=== PATIENT | female | born 1955 | race American Indian/Alaskan Native ===

== ENCOUNTER 2020-08-14 18:39 | Inpatient (IN) | payer MEDICAID, OTHER ==
[2020-08-14 19:41] LABS: Basophils % (Auto) 0.4 % (0.0-1.8); Eosinophils # (Auto) 0.1 K/mm3 (0.0-0.4); Eosinophils % (Auto) 0.9 % (0.0-4.3); Hematocrit 31.4 % (30.3-42.9); Hemoglobin 10.1 gm/dl (10.1-14.3); Lymphocytes # (Auto) 2.5 K/mm3 (1.2-5.4); Lymphocytes % (Auto) 22.8 % (13.4-35.0); Mean Corpuscular HGB Conc 32 % (30-34); Mean Corpuscular Volume 85 fl (79-97); Monocytes # (Auto) 0.9 K/mm3 (0.0-0.8); Monocytes % (Auto) 8.4 % (0.0-7.3); Platelet Count 350 K/mm3 (140-440); Red Cell Distribution Width 17.1 % (13.2-15.2)
--- NOTE | 2020-08-14 19:56 | XRay Report ---
CHEST 1 VIEW INDICATION / CLINICAL INFORMATION: Dyspnea. COMPARISON: 05/12/2015 FINDINGS: Radiograph is underpenetrated SUPPORT DEVICES: None. HEART / MEDIASTINUM: There is prominence of the cardiac silhouette LUNGS / PLEURA: There is venous congestion. There is perihilar interstitial change characteristic of edema.. No pneumothorax. ADDITIONAL FINDINGS: No significant additional findings. IMPRESSION: There is mild venous congestion and perihilar edema. There is prominence the cardiac silhouette. This radiograph is underpenetrated. PA and lateral chest radiograph is recommended for better evaluat ion of the lungs when the patient is able. Signer Name: Ab Milner MD Signed: 08/14/2020 7:52 PM Workstation Name: [id number]
[2020-08-14 20:02] LABS: Alanine Aminotransferase 23 units/L (7-56); Albumin 3.9 g/dL (3.9-5); BUN/Creatinine Ratio 19; Blood Urea Nitrogen 15 mg/dL (7-17); Calcium 9.6 mg/dL (8.4-10.2); Hemolysis Index 3
--- NOTE | 2020-08-14 20:42 | Emergency Department Report ---
HPI - General Chief Complaint: Dyspnea/Respdistress Time Seen by Provider: 08/14/20 19:58 - HPI HPI: This is a 64-year-old -N[place]alese female presents to the emergency department from home with a complaint of a 3-day history of progressively worsening shortness of breath. The patient also has been having swelling of the lower extremities and around the abdomen that has been going on for the past 3 weeks. She denies any fever but does have chills. She denies any nausea, vomiting, diaphoresis, chest pain, abdominal pain, back pain. Patient tried her granddaughters inhaler a few times earlier today without much relief. The shortness of breath worsens when laying flat or with exertion. She travel to [place] by plane in July. She says that she has had some family members that were positive for Covid 19 but this was months ago. She has a past medical history that includes hypertension, hyperlipidemia, diabetes. She follows with [facility] for primary care. ED Past Medical Hx - Past Medical History Previous Medical History?: Yes Hx Hypertension: Yes Hx Congestive Heart Failure: No Hx Diabetes: Yes Hx Sickle Cell Disease: No Hx Arthritis: Yes Hx Asthma: Yes Hx COPD: No Hx HIV: No Additional medical history: PANCREATITIS - Surgical History Past Surgical History?: Yes Hx Appendectomy: Yes Additional Surgical History: HYSTERECTOMY - Social History Smoking Status: Never Smoker - Medications Home Medications: Home Medications Medication Instructions Recorded Confirmed Last Taken Type Aspirin [Aspirin BABY CHEW TAB] 81 mg PO DAILY 07/20/16 07/20/16 Unknown History Diclofenac Sodium [Voltaren] 100 gm TP 4XD 07/20/16 07/20/16 Unknown History Gabapentin 100 mg PO Q8HR 07/20/16 07/20/16 Unknown History Insulin Detemir [Levemir VIAL] 0 unit SQ QHS 07/20/16 07/20/16 Unknown History Insulin Lispro [HumaLOG VIAL] 0 units SQ AC 07/20/16 07/20/16 Unknown History Losartan [Cozaar] 25 mg PO QDAY 07/20/16 07/20/16 Unknown History Rosuvastatin (Nf) [Crestor] 20 mg PO DAILY 07/20/16 07/20/16 Unknown History amLODIPine 10 mg PO DAILY 07/20/16 07/20/16 Unknown History ED Review of Systems ROS: Stated complaint: SOB Other details as noted in HPI Comment: All other systems reviewed and negative Constitutional: chills. denies: fever Eyes: denies: eye pain, vision change ENT: denies: ear pain, throat pain Respiratory: cough, shortness of breath, wheezing Cardiovascular: edema. denies: chest pain Gastrointestinal: denies: abdominal pain, vomiting Genitourinary: denies: dysuria, discharge Musculoskeletal: denies: back pain, arthralgia Skin: denies: rash, lesions Neurological: denies: headache, weakness Physical Exam - Physical Exam Vital Signs: Vital Signs 08/14/20 18:41 Temperature 98.2 F Pulse Rate 72 Respiratory 32 H Rate Blood Pressure 116/69 [Right] O2 Sat by Pulse 89 Oximetry Physical Exam: GENERAL: The patient is well-developed well-nourished. HENT: Normocephalic. Atraumatic. Patient has moist mucous membranes. EYES: Extraocular motions are intact. NECK: Supple. Trachea is midline. CHEST/LUNGS: Coarse breath sounds throughout the chest. There is some tachypnea but no accessory muscle use. HEART/CARDIOVASCULAR: Regular. There is no tachycardia. There is no murmur. ABDOMEN: Abdomen is soft, nontender. Patient has normal bowel sounds. SKIN: Skin is warm and dry. 2+ pitting edema to the bilateral lower extremities. Nonpitting swelling to the lower abdomen. NEURO: The patient is awake, alert, and oriented. The patient is cooperative. The patient has no focal neurologic deficits. Normal speech. MUSCULOSKELETAL: There is no tenderness or deformity. ED Course Vital Signs 08/14/20 18:41 Temperature 98.2 F Pulse Rate 72 Respiratory 32 H Rate Blood Pressure 116/69 [Right] O2 Sat by Pulse 89 Oximetry - Reevaluation(s) Reevaluation #1: 08/14/20 23:58 Lab Results 08/14/20 08/14/20 08/14/20 Range/Units 19:15 19:15 20:33 WBC 11.0 (4.5-11.0) K/mm3 RBC 3.70 (3.65-5.03) M/mm3 Hgb 10.1 (10.1-14.3) gm/dl Hct 31.4 (30.3-42.9) % MCV 85 (79-97) fl MCH 27 L (28-32) pg MCHC 32 (30-34) % RDW 17.1 H (13.2-15.2) % Plt Count 350 (140-440) K/mm3 Lymph % (Auto) 22.8 (13.4-35.0) % [place] % (Auto) 8.4 H (0.0-7.3) % Eos % (Auto) 0.9 (0.0-4.3) % Baso % (Auto) 0.4 (0.0-1.8) % Lymph # 2.5 (1.2-5.4) K/mm3 [place] # 0.9 H (0.0-0.8) K/mm3 Eos # 0.1 (0.0-0.4) K/mm3 Baso # 0.0 (0.0-0.1) K/mm3 Seg Neutrophils % 67.5 (40.0-70.0) % Seg Neutrophils # 7.4 (1.8-7.7) K/mm3 D-Dimer 666.45 H (0-234) ng/mlDDU Sodium 144 (137-145) mmol/L Potassium 3.4 L (3.6-5.0) mmol/L Chloride 104.9 (98-107) mmol/L Carbon Dioxide 24 (22-30) mmol/L Anion Gap 19 mmol/L BUN 15 (7-17) mg/dL Creatinine 0.8 (0.6-1.2) mg/dL Estimated GFR > 60 ml/min BUN/Creatinine Ratio 19 % Glucose 175 H (65-100) mg/dL Calcium 9.6 (8.4-10.2) mg/dL Ferritin (10.0-200.0) ng/mL Total Bilirubin 0.60 (0.1-1.2) mg/dL AST 16 (5-40) units/L ALT 23 (7-56) units/L Alkaline Phosphatase 235 H (35-129) units/L Lactate Dehydrogenase (91-180) units/L Troponin T < 0.010 (0.00-0.029) ng/mL C-Reactive Protein (0.00-1.30) mg/dL NT-Pro-B Natriuret Pep 1156 H (0-900) pg/mL Total Protein 7.1 (6.3-8.2) g/dL Albumin 3.9 (3.9-5) g/dL Albumin/Globulin Ratio 1.2 % 08/14/20 08/14/20 Range/Units 20:33 20:33 WBC (4.5-11.0) K/mm3 RBC (3.65-5.03) M/mm3 Hgb (10.1-14.3) gm/dl Hct (30.3-42.9) % MCV (79-97) fl MCH (28-32) pg MCHC (30-34) % RDW (13.2-15.2) % Plt Count (140-440) K/mm3 Lymph % (Auto) (13.4-35.0) % [place] % (Auto) (0.0-7.3) % Eos % (Auto) (0.0-4.3) % Baso % (Auto) (0.0-1.8) % Lymph # (1.2-5.4) K/mm3 [place] # (0.0-0.8) K/mm3 Eos # (0.0-0.4) K/mm3 Baso # (0.0-0.1) K/mm3 Seg Neutrophils % (40.0-70.0) % Seg Neutrophils # (1.8-7.7) K/mm3 D-Dimer (0-234) ng/mlDDU Sodium (137-145) mmol/L Potassium (3.6-5.0) mmol/L Chloride (98-107) mmol/L Carbon Dioxide (22-30) mmol/L Anion Gap mmol/L BUN (7-17) mg/dL Creatinine (0.6-1.2) mg/dL Estimated GFR ml/min BUN/Creatinine Ratio % Glucose (65-100) mg/dL Calcium (8.4-10.2) mg/dL Ferritin 187.4 (10.0-200.0) ng/mL Total Bilirubin (0.1-1.2) mg/dL AST (5-40) units/L ALT (7-56) units/L Alkaline Phosphatase (35-129) units/L Lactate Dehydrogenase 270 H (91-180) units/L Troponin T (0.00-0.029) ng/mL C-Reactive Protein 1.00 (0.00-1.30) mg/dL NT-Pro-B Natriuret Pep (0-900) pg/mL Total Protein (6.3-8.2) g/dL Albumin (3.9-5) g/dL Albumin/Globulin Ratio % Reevaluation #2: 08/14/20 23:59 Vital Signs 08/14/20 08/14/20 18:41 19:35 Temperature 98.2 F 98.0 F Pulse Rate 72 62 Respiratory 32 H 13 Rate Blood Pressure 116/69 104/58 [Right] O2 Sat by Pulse 89 100 Oximetry - Pulse Oximetry Interpretation Digit-Finger Initial Pulse Oximetry Readin O2 Sat by Pulse Oximetry: 89 Actions Taken: other (Placed on 2 L oxygen by nasal cannula) Additional Comments: Pulse ox went up to 100% on 2 L oxygen via nasal cannula ED Medical Decision Making - Lab Data Result diagrams: 08/14/20 19:15 08/14/20 19:15 - EKG Data -: EKG Interpreted by Me EKG shows normal: sinus rhythm (PACs), axis, intervals, QRS complexes, ST-T waves Rate: bradycardia (59 bpm) - EKG Data When compared to previous EKG there are: no significant change Interpretation: normal EKG, unchanged when compared t (07/20/16) - Radiology Data Radiology results: report reviewed, image reviewed interpreted by me: Chest x-ray shows some mild cardiomegaly, pulmonary vascular congestion and some mild interstitial edema. CT angio chest INDICATION / CLINICAL INFORMATION: P.E. PROTOCOL!!! SOB, elevated D-dimer. TECHNIQUE: Axial CT images were obtained after injection of Omnipaque 300, 100 cc IV contrast using CTA protocol. 3 plane MIP / 3D reconstructions were produced. All CT scans at this location are performed using CT dose reduction for ALARA by means of automated exposure control. COMPARISON: Chest x- ray earlier the same day. FINDINGS: Small right effusion. Bilateral heterogeneous groundglass opacity with mosaic attenuation. No dense infiltrate. Evaluation of the mediastinum demonstrates right prominent nodes at the right paratracheal, pretracheal and subcarinal regions. A construction sales representative node at the right paratracheal region measures 1.7 x 2 cm. Prominent eliot tissue is also seen at the right hilum. Imaging the upper abdomen is unremarkable. No aneurysm, dissection or pulmonary embolus. IMPRESSION: 1. Heterogeneous groundglass opacity with mosaic attenuation is likely a combination of reactive airway disease and edema. 2. Small right effusion. 3. Mild adenopathy. No pathologic lung lesion is seen. - Medical Decision Making This patient presents with a 3-day history of progressively worsening shortness of breath and a 3-week history of some swelling to the legs and lower abdomen. The patient's initial room air pulse ox was 89%, so she was placed on 2 L of oxygen via nasal cannula and the pulse ox went up to 100%. EKG did not have any morphology consistent with ST elevation NE. Chest x-ray shows some pulmonary vascular congestion and mild interstitial edema. Patient's labs showed an elevated d-dimer level of about 600, elevated BNP of 1100, slightly elevated LDH. Normal-appearing CRP, ferritin and procalcitonin level. CT angiography of the chest was completed that shows a heterogenous groundglass opacity that is likely accommodation of reactive airway disease and edema, as well as a small right pleural effusion. Blood cultures were sent and the patient was started on antibiotics. She was previously given some IV Lasix to start diuresis. The patient will be admitted to the hospital for further evaluation and treatment and was excepted for admission by the hospitalist, Dr. Barillas. As soon as I was presented this patient and saw that she had a room air pulse ox of 89% with a complaint of shortness of breath, the patient was moved to a private room for patient isolation and droplet precautions. The patient was placed in patient isolation and droplet precautions immediately upon arrival to the main emergency department. I wore full PPE gear including a surgical hat, goggles, N95 mask, surgical mask, gown, and double gloves for every encounter. Critical Care Time: Yes Critical care time in (mins) excluding proc time.: 35 Critical care attestation.: If time is entered above; I have spent that time in minutes in the direct care of this critically ill patient, excluding procedure time. Critical care time was spent on this patient in doing her initial evaluation, multiple re- evaluations, ordering and interpretation of labs and imaging, supplemental oxygen for the hypoxia, IV Lasix for diuresis, IV antibiotics, multiple discussions with the patient. Critical Care Time: 35 minutes ED Disposition Clinical Impression: Suspected 2019 novel coronavirus infection, Hypoxia CHF (congestive heart failure) Qualifiers: Heart failure type: unspecified Heart failure chronicity: acute Qualified Code(s): I50.9 - Heart failure, unspecified Disposition: DC-09 OP ADMIT IP TO THIS HOSP Is pt being admited?: Yes Condition: Serious Time of Disposition: 23:41
[2020-08-14] MEDS ORDERED: FUROSEMIDE 20 MG/2 ML INJ IV ONE (20:43)
[2020-08-14] MEDS ORDERED: IPRATROPIUM/ALBUTEROL SULFATE 3 ML AMPUL.NEB IH ONE (20:43)
[2020-08-14] MEDS ORDERED: POTASSIUM CHLORIDE ER 10 MEQ TAB PO ONE (20:43)
--- NOTE | 2020-08-14 23:28 | Cat Scan Report ---
CT angio chest INDICATION / CLINICAL INFORMATION: P.E. PROTOCOL!!! SOB, elevated D-dimer. TECHNIQUE: Axial CT images were obtained after injection of Omnipaque 300, 100 cc IV contrast using CTA protocol . 3 plane MIP / 3D reconstructions were produced. All CT scans at this location are performed using C T dose reduction for ALARA by means of automated exposure control. COMPARISON: Chest x-ray earlier the same day. FINDINGS: Small right effusion. Bilateral heterogeneous groundglass opacity with mosaic attenuation. No dense i nfiltrate. Evaluation of the mediastinum demonstrates right prominent nodes at the right paratracheal, pretrache al and subcarinal regions. A dermatology sales representative node at the right paratracheal region measures 1.7 x 2 cm . Prominent eliot tissue is also seen at the right hilum. Imaging the upper abdomen is unremarkable. No aneurysm, dissection or pulmonary embolus. IMPRESSION: 1. Heterogeneous groundglass opacity with mosaic attenuation is likely a combination of reactive airw ay disease and edema. 2. Small right effusion. 3. Mild adenopathy. No pathologic lung lesion is seen. Signer Name: Isak Hendrix MD Signed: 08/14/2020 11:24 PM Workstation Name: [id number]
[2020-08-14] MEDS ORDERED: cefTRIAXone/NS 1 GM/50 ML 1 GM/50 ML BAG IV ONE (23:38)
[2020-08-14] MEDS ORDERED: AZITHROMYCIN 500 MG in SODIUM CHLORIDE 0.9% 250ML 250 ML IV ONE (23:38)
[2020-08-14] MEDS ORDERED: ACETAMINOPHEN 325 MG TAB PO PRN (23:45)
[2020-08-14] MEDS ORDERED: DEXTROSE 50% IN WATER (25GM) 50 ML SYRINGE IV PRN (23:45)
[2020-08-14] MEDS ORDERED: ONDANSETRON 4 MG/2 ML INJ IV PRN (23:45)
[2020-08-14] MEDS ORDERED: MAGNESIUM HYDROXIDE (MOM) ORAL LIQD UDC PO PRN (23:50)
--- NOTE | 2020-08-15 00:01 | History and Physical Report ---
History of Present Illness Date of examination: 08/14/20 Date of admission: 08/14/2020 Chief complaint: Shortness of Breath History of present illness: 64-year-old -[place] female with known history of hypertension, diabetes mellitus, hyperlipidemia and asthma presenting to the emergency room today complaining of her shortness of breath, lower extremity swelling and some chills which has been ongoing for the past 3 days. Patient indicates that she has had some swelling of her lower extremities and also lower abdomen over the past 3 weeks but has gotten worse over the past 3 days. She denies any chest pain, no fever, no nausea vomiting, no abdominal p ain, no headache or dizziness. Patient tried using some inhaler at home without any significant improvement. Shortness of breath is said to get worse on lying down and on exertion. Patient admits that she has had contact with family members who were diagnosed with COVID-19 about 2 to 3 months ago and she also had an area travel to [place] sometime in July 2020. Evaluation in the emergency room today reveals elevated BNP, elevated d-dimer. CT angiogram of the chest reveals Heterogeneous groundglass opacity with mosaic attenuation - likely a combination of reactive airway disease and edema. Small right effusion Patient has been placed on diuretics and also empiric IV antibiotics for possible underlying pneumonia. She is also placed on isolation precautions. Past History Past Medical History: arthritis, diabetes, hypertension, hyperlipidemia Past Surgical History: appendectomy, hysterectomy Social history: no significant social history Family history: no significant family history Medications and Allergies Allergies Allergy/AdvReac Type Severity Reaction Status Date / Time No Known Allergies Allergy Verified 05/25/15 17:50 Home Medications Medication Instructions Recorded Confirmed Last Taken Type Aspirin [Aspirin BABY CHEW TAB] 81 mg PO DAILY 07/20/16 08/15/20 Unknown History Diclofenac Sodium [Voltaren] 100 gm TP 4XD 07/20/16 08/15/20 Unknown History Gabapentin 300 mg PO Q8HR 07/20/16 08/15/20 Unknown History Insulin Detemir [Levemir VIAL] 0 unit SQ QHS 07/20/16 08/15/20 Unknown History Insulin Lispro [HumaLOG VIAL] 0 units SQ AC 07/20/16 08/15/20 Unknown History Losartan [Cozaar] 100 mg PO QDAY 07/20/16 08/15/20 Unknown History Rosuvastatin (Nf) [Crestor] 20 mg PO DAILY 07/20/16 08/15/20 Unknown History amLODIPine 10 mg PO DAILY 07/20/16 08/15/20 Unknown History Furosemide 80 mg PO DAILY 08/15/20 08/15/20 Unknown History Spironolactone [Aldactone] 50 mg PO QDAY 08/15/20 08/15/20 Unknown History Active Meds: Active Medications Dextrose (D50w (25gm) Syringe) 50 ml IV Q30MIN PRN; Protocol PRN Reason: Hypoglycemia Ceftriaxone Sodium (Rocephin/Ns 1 Gm/50 Ml) 1 gm in 50 mls @ 100 mls/hr IV ONCE ONE; Protocol Stop: 08/15/20 00:07 Azithromycin 500 mg/ Sodium (Chloride) 250 mls @ 250 mls/hr IV ONCE ONE; Protocol Stop: 08/15/20 00:37 Review of Systems Constitutional: chills, no fever Ears, nose, mouth and throat: no nasal congestion, no sore throat Cardiovascular: no chest pain, no palpitations Respiratory: shortness of breath, no cough Gastrointestinal: no abdominal pain, no nausea, no vomiting, no diarrhea Genitourinary Female: no pelvic pain, no flank pain, no dysuria, no hematuria Musculoskeletal: no neck pain, no low back pain Integumentary: no rash, no pruritis Neurological: no headaches, no confusion Exam - Constitutional Vitals: Temp Pulse Resp BP Pulse Ox 98.0 F 62 13 104/58 100 08/14/20 19:35 08/14/20 19:35 08/14/20 19:35 08/14/20 19:35 08/14/20 19:35 General appearance: Present: no acute distress, well-nourished - EENT Eyes: Present: PERRL, EOM intact ENT: hearing intact, clear oral mucosa, dentition normal - Neck Neck: Present: supple, normal ROM - Respiratory Respiratory effort: normal Respiratory: bilateral: rales - Cardiovascular Rhythm: regular Heart Sounds: Present: S1 & S2. Absent: gallop, systolic murmur, diastolic murmur, rub - Extremities Extremities: no ischemia, pulses intact, pulses symmetrical, Full ROM Extremity abnormal: edema (1+) Peripheral Pulses: within normal limits - Abdominal General gastrointestinal: Present: soft, non-tender, non-distended, normal bowel sounds. Absent: mass - Integumentary Integumentary: Present: clear, warm, dry. Absent: rash - Musculoskeletal Musculoskeletal: strength equal bilaterally - Psychiatric Psychiatric: appropriate mood/affect, intact judgment & insight, memory intact, cooperative - Neurologic Neurologic: CNII-XII intact, no focal deficits, moves all extremities HEART Score - HEART Score Troponin: Troponin T < 0.010 ng/mL (0.00-0.029) 08/14/20 19:15 Results - Labs CBC & Chem 7: 08/14/20 19:15 08/14/20 19:15 Labs: Abnormal lab results 08/14/20 08/14/20 08/14/20 Range/Units 19:15 19:15 20:33 MCH 27 L (28-32) pg RDW 17.1 H (13.2-15.2) % [place] % (Auto) 8.4 H (0.0-7.3) % [place] # 0.9 H (0.0-0.8) K/mm3 D-Dimer 666.45 H (0-234) ng/mlDDU Potassium 3.4 L (3.6-5.0) mmol/L Glucose 175 H (65-100) mg/dL Alkaline Phosphatase 235 H (35-129) units/L Lactate Dehydrogenase (91-180) units/L NT-Pro-B Natriuret Pep 1156 H (0-900) pg/mL 08/14/20 Range/Units 20:33 MCH (28-32) pg RDW (13.2-15.2) % [place] % (Auto) (0.0-7.3) % [place] # (0.0-0.8) K/mm3 D-Dimer (0-234) ng/mlDDU Potassium (3.6-5.0) mmol/L Glucose (65-100) mg/dL Alkaline Phosphatase (35-129) units/L Lactate Dehydrogenase 270 H (91-180) units/L NT-Pro-B Natriuret Pep (0-900) pg/mL - Imaging and Cardiology EKG: pending, report reviewed, image reviewed, other CT scan - chest: other Assessment and Plan - Patient Problems (1) CHF (congestive heart failure) Current Visit: Yes Status: Acute Plan to address problem: Patient placed on diuretics. Will monitor daily weights and also monitor inputs and output. Patient will be scheduled for echocardiogram. (2) Hypoxia Current Visit: Yes Status: Acute Plan to address problem: We will keep oxygen saturation greater or equal to 92%. (3) Suspected 2019 novel coronavirus infection Current Visit: Yes Status: Acute Plan to address problem: Patient placed on isolation precautions. We will schedule for COVID-19 testing. We will also request infectious disease evaluation. (4) Diabetes mellitus Current Visit: No Status: Acute Qualifiers: Diabetes mellitus type: type 2 Diabetes mellitus mcfp insulin use: with mcfp use Diabetes mellitus complication status: with hyperglycemia Qualified Code(s): E11.65 - Type 2 diabetes mellitus with hyperglycemia; Z79.4 - [facility]CI (current) use of insulin Plan to address problem: We will monitor Accu-Cheks and resume routine home medications once reconciled. (5) HTN (hypertension) Current Visit: No Status: Acute Qualifiers: Hypertension type: essential hypertension Qualified Code(s): I10 - Essential (primary) hypertension Plan to address problem: We will continue routine home medications and monitor vital signs closely. (6) DVT prophylaxis Current Visit: Yes Status: Acute Plan to address problem: Patient placed on subcutaneous Lovenox. (7) Full code status Current Visit: Yes Status: Acute
[2020-08-15] MEDS ORDERED: cefTRIAXone/NS 2 GM/100 ML 2 GM/100 ML BAG IV ONE (00:52)
[2020-08-15] MEDS: cefTRIAXone/NS 2 GM/100 ML 2 GM/100 ML BAG IV SCH ×2 (00:55→22:23)
[2020-08-15] MEDS ORDERED: diphenhydrAMINE 50 MG/ML VIAL IV ONE (01:40)
[2020-08-15] MEDS: GABAPENTIN 300 MG CAP PO SCH ×3 (06:00→22:24)
[2020-08-15] MEDS: FUROSEMIDE 40 MG/4 ML INJ IV SCH ×2 (06:00→18:12)
[2020-08-15 06:13] LABS: Basophils # (Auto) 0.1 K/mm3 (0.0-0.1); Basophils % (Auto) 0.6 % (0.0-1.8); Eosinophils # (Auto) 0.2 K/mm3 (0.0-0.4); Eosinophils % (Auto) 1.8 % (0.0-4.3); Hematocrit 30.5 % (30.3-42.9); Hemoglobin 9.7 gm/dl (10.1-14.3); Lymphocytes # (Auto) 2.6 K/mm3 (1.2-5.4); Lymphocytes % (Auto) 26.8 % (13.4-35.0); Mean Corpuscular HGB Conc 32 % (30-34); Mean Corpuscular Volume 85 fl (79-97); Monocytes # (Auto) 0.7 K/mm3 (0.0-0.8); Monocytes % (Auto) 7.4 % (0.0-7.3); Platelet Count 322 K/mm3 (140-440); Red Blood Count 3.61 M/mm3 (3.65-5.03)
[2020-08-15 06:23] LABS: BUN/Creatinine Ratio 16; Blood Urea Nitrogen 13 mg/dL (7-17); Calcium 8.7 mg/dL (8.4-10.2); Hemolysis Index 27
[2020-08-15 06:33] LABS: INR 1.1 (0.87-1.13)
[2020-08-15] MEDS: ASPIRIN 81 MG TAB CHEW PO SCH (09:39)
[2020-08-15] MEDS: amLODIPine 10 MG TAB PO SCH (09:39)
[2020-08-15] MEDS: LOSARTAN 50 MG TAB PO SCH (09:39)
[2020-08-15] MEDS: SPIRONOLACTONE 50 MG TAB PO SCH (09:39)
[2020-08-15] MEDS: INSULIN LISPRO 100 UNIT/ML VIAL 3 mL SUB-Q SCH ×4 (09:45→22:25)
[2020-08-15] MEDS ORDERED: NON-FORMULARY EACH (Rosuvastatin (Nf) 20 MG) PO SCH (10:00)
[2020-08-15] MEDS ORDERED: INSULIN GLARGINE 100 UNITS/ML SUB-Q SCH (12:00)
[2020-08-15] MEDS: INSULIN GLARGINE 100 UNITS/ML SUB-Q SCH (13:33)
--- NOTE | 2020-08-15 15:27 | Consultation ---
History of Present Illness - Reason for Consult Consult date: 08/15/20 r/o COVID Requesting physician: ALFREDO BELLO - History of Present Illness 64 years old female with history of hypertension, diabetes, hyperlipidemia, hospital, admitted on 08/15/2020 due to 2-day history of history of generalized malaise, chills, lower extremity edema, shortness of breath. Her lower extremity and abdominal wound has been becoming swollen for the last 3 weeks. Patient denies any fever. She was exposed to family members positive for COVID- 19 3 months ago. She traveled to the medical center in July 2020. On admission: T- max 98.2, O2 89%. Initial WBC 11. D-dimer 666. proBNP 856. Glucose 247. Procalcitonin less than 0.05. CTA chest shows heterogeneous groundglass opacity likely pulmonary edema versus reactive airways. COVID-19 PCR negative. Review of Systems: positive in bold print General: fever, chills, malaise Cutaneous: rash, pruritus Head: headaches or injury Eyes: changes in vision, eye pain, double vision Ears: ear pain, ear discharge, ringing or hearing loss Nose: nose bleeding, stuffiness Mouth & throat: bleeding gums, horseness, no dental problems, or swollen glands Neck: no pain, node enlargement/lumps, tyroid enlargement or tenderness Respiratory: SOB, cough, ELDER, orthopnea, wheezing, sputum, hemoptysis, pleuritic chest pain Cardiovascular: chest pain, leg edema, cyanosis, ELDER, orthopnea Musculoskeletal: edema, deformities, pain Gastrointestinal: nausea, vomiting, hematemesis, diarrhea, constipation, melena, bright red blood in stools, fecal incontinence, jaundice Genitourinary/Reproductive: frequent urination, dysuria, hematuria, incontinence Neurogical: seizures, headaches, weakness, paresthesias, loss of speech or vision; memory loss, vertigo, tremors, numbness Psychiatric: stable mood; excessive anxiety, sadness or moodiness Past History Past Medical History: arthritis, diabetes, hypertension, hyperlipidemia Past Surgical History: appendectomy, hysterectomy Social history: no significant social history Family history: no significant family history Medications and Allergies Allergies Allergy/AdvReac Type Severity Reaction Status Date / Time No Known Allergies Allergy Verified 05/25/15 17:50 Home Medications Medication Instructions Recorded Confirmed Last Taken Type Aspirin [Aspirin BABY CHEW TAB] 81 mg PO DAILY 07/20/16 08/15/20 Unknown History Diclofenac Sodium [Voltaren] 100 gm TP 4XD 07/20/16 08/15/20 Unknown History Gabapentin 300 mg PO Q8HR 07/20/16 08/15/20 Unknown History Insulin Detemir [Levemir VIAL] 35 unit SQ QAM 07/20/16 08/15/20 Unknown History Insulin Lispro [HumaLOG VIAL] 0 units SQ AC 07/20/16 08/15/20 Unknown History Losartan [Cozaar] 100 mg PO QDAY 07/20/16 08/15/20 Unknown History Rosuvastatin (Nf) [Crestor] 20 mg PO DAILY 07/20/16 08/15/20 Unknown History amLODIPine 10 mg PO DAILY 07/20/16 08/15/20 Unknown History Furosemide 80 mg PO DAILY 08/15/20 08/15/20 Unknown History Spironolactone [Aldactone] 50 mg PO QDAY 08/15/20 08/15/20 Unknown History Active Meds: Active Medications Acetaminophen (Tylenol) 650 mg PO Q4H PRN PRN Reason: Pain MILD(1-3)/Fever >100.5/[place] Amlodipine Besylate (Amlodipine) 10 mg PO DAILY [facility] [place] Last Admin: 08/15/20 09:39 Dose: 10 mg Documented by: Aspirin (Baby Aspirin) 81 mg PO DAILY [facility] Last Admin: 08/15/20 09:39 Dose: 81 mg Documented by: Atorvastatin Calcium (Lipitor) 40 mg PO DAILY [facility] [place] Last Admin: 08/15/20 09:39 Dose: 40 mg Documented by: Azithromycin (Zithromax) 500 mg PO Q24H [facility] Dextrose (D50w (25gm) Syringe) 50 ml IV Q30MIN PRN; Protocol PRN Reason: Hypoglycemia Enoxaparin Sodium (Enoxaparin) 40 mg SUB-Q QDAY@2200 [facility] [place]; Protocol Furosemide (Lasix) 40 mg IV BID@0600,1800 [facility] [place] Last Admin: 08/15/20 06:00 Dose: 40 mg Documented by: Gabapentin (Gabapentin) 300 mg PO Q8HR [facility] Last Admin: 08/15/20 13:32 Dose: 300 mg Documented by: Ceftriaxone Sodium (Rocephin/Ns 2 Gm/100 Ml) 2 gm in 100 mls @ 200 mls/hr IV Q24H [facility] [place]; Protocol Last Admin: 08/15/20 00:55 Dose: 200 mls/hr Documented by: Azithromycin 500 mg/ Sodium (Chloride) 250 mls @ 250 mls/hr IV Q24H [facility] [place]; Protoc ol Stop: 08/15/20 23:59 Insulin Glargine (Lantus) 35 units SUB-Q QAM [facility] [place] Last Admin: 08/15/20 13:33 Dose: 35 units Documented by: Insulin Human Lispro (Humalog) 0 unit SUB-Q ACHS [facility] [place]; Protocol Last Admin: 08/15/20 12:07 Dose: 6 unit Documented by: Losartan Potassium (Cozaar) 100 mg PO QDAY [facility] [place] Last Admin: 08/15/20 09:39 Dose: 100 mg Documented by: Magnesium Hydroxide (Milk Of Magnesia) 30 ml PO Q4H PRN PRN Reason: Constipation Ondansetron HCl (Zofran) 4 mg IV Q8H PRN PRN Reason: Nausea And Vomiting Sodium Chloride (Sodium Chloride Flush Syringe 10 Ml) 10 ml IV BID [facility] [place] Last Admin: 08/15/20 09:45 Dose: 10 ml Documented by: Sodium Chloride (Sodium Chloride Flush Syringe 10 Ml) 10 ml IV PRN PRN PRN Reason: LINE FLUSH Spironolactone (Aldactone) 50 mg PO QDAY [facility] [place] Last Admin: 08/15/20 09:39 Dose: 50 mg Documented by: Physical Examination - Physical Exam Narrative exam: Patient was not examined due to PPE conservation at the time of exam she was still a PUI - Constitutional Vitals: Vital Signs Temp Pulse Resp BP Pulse Ox 97.2 F L 58 L 18 145/77 100 08/15/20 12:09 08/15/20 12:09 08/15/20 12:09 08/15/20 12:09 08/15/20 12:09 Temperature -Last 24 Hours Temperature 97.2 F Temperature 97.6 F Temperature 98.0 F Temperature 98.2 F Results - Labs CBC & Chem 7: 08/15/20 05:24 08/15/20 05:24 Labs: Abnormal lab results 08/14/20 08/14/20 08/14/20 Range/Units 19:15 19:15 20:33 RBC (3.65-5.03) M/mm3 Hgb (10.1-14.3) gm/dl MCH 27 L (28-32) pg RDW 17.1 H (13.2-15.2) % [place] % (Auto) 8.4 H (0.0-7.3) % [place] # 0.9 H (0.0-0.8) K/mm3 D-Dimer 666.45 H (0-234) ng/mlDDU Potassium 3.4 L (3.6-5.0) mmol/L Glucose 175 H (65-100) mg/dL POC Glucose (70-105) Alkaline Phosphatase 235 H (35-129) units/L Lactate Dehydrogenase (91-180) units/L NT-Pro-B Natriuret Pep 1156 H (0-900) pg/mL 08/14/20 08/15/20 08/15/20 Range/Units 20:33 05:24 05:24 RBC 3.61 L (3.65-5.03) M/mm3 Hgb 9.7 L (10.1-14.3) gm/dl MCH 27 L (28-32) pg RDW 17.0 H (13.2-15.2) % [place] % (Auto) 7.4 H (0.0-7.3) % [place] # (0.0-0.8) K/mm3 D-Dimer (0-234) ng/mlDDU Potassium 3.5 L (3.6-5.0) mmol/L Glucose 222 H (65-100) mg/dL POC Glucose (70-105) Alkaline Phosphatase (35-129) units/L Lactate Dehydrogenase 270 H (91-180) units/L NT-Pro-B Natriuret Pep (0-900) pg/mL 08/15/20 08/15/20 Range/Units 08:37 11:23 RBC (3.65-5.03) M/mm3 Hgb (10.1-14.3) gm/dl MCH (28-32) pg RDW (13.2-15.2) % [place] % (Auto) (0.0-7.3) % [place] # (0.0-0.8) K/mm3 D-Dimer (0-234) ng/mlDDU Potassium (3.6-5.0) mmol/L Glucose (65-100) mg/dL POC Glucose 242 H 316 H (70-105) Alkaline Phosphatase (35-129) units/L Lactate Dehydrogenase (91-180) units/L NT-Pro-B Natriuret Pep (0-900) pg/mL Assessment and Plan Cultures: Blood Cultures no growth today SARS COV2 PCR negative Assessment: 64 years old female with history of hypertension, diabetes, hyperlipidemia, hospital, admitted on 08/15/2020 due to 2-day history of generalized malaise, chills, lower extremity edema, shortness of breath: #Pulmonary edema versus bilateral pneumonia: COVID-19 PCR negative. Procalcitonin normal. [id number]. Complaining of orthopnea and bilateral lower extremity edema. These mostly represent pulmonary edema. Patient without fever. CTA shows no pulmonary embolism, positive heterogeneous groundglass opacity bilaterally. #Hypoxia: Possibly due to pulmonary edema. #Diabetes mellitus uncontrolled. Recommendations: Stop antibiotics, procalcitonin normal Managed pulmonary edema Monitor off antibiotics Will follow. Antonia Moeller MD Infectious Diseases [employer] [facility] M [phone]
--- NOTE | 2020-08-15 15:38 | Progress Note ---
Assessment and Plan (1) CHF (congestive heart failure) Current Visit: Yes Status: Acute Plan to address problem: Patient placed on diuretics. Will monitor daily weights and also monitor inputs and output. Patient will be scheduled for echocardiogram. (2) Hypoxia Current Visit: Yes Status: Acute Plan to address problem: We will keep oxygen saturation greater or equal to 92%. (3) Suspected 2019 novel coronavirus infection Current Visit: Yes Status: Acute Plan to address problem: Patient placed on isolation precautions. We will schedule for COVID-19 testing. We will also request infectious disease evaluation. (4) Diabetes mellitus Current Visit: No Status: Acute Qualifiers: Diabetes mellitus type: type 2 Diabetes mellitus nursing home insulin use: with nursing home use Diabetes mellitus complication status: with hyperglycemia Qualified Code(s): E11.65 - Type 2 diabetes mellitus with hyperglycemia; Z79.4 - intermediate manager (current) use of insulin Plan to address problem: We will monitor Accu-Cheks and resume routine home medications once reconciled. (5) HTN (hypertension) Current Visit: No Status: Acute Qualifiers: Hypertension type: essential hypertension Qualified Code(s): I10 - Essential (primary) hypertension Plan to address problem: We will continue routine home medications and monitor vital signs closely. (6) DVT prophylaxis Current Visit: Yes Status: Acute Plan to address problem: Patient placed on subcutaneous Lovenox. (7) Full code status Current Visit: Yes Status: Acute Subjective Date of service: 08/15/20 Interval history: 64-year-old -[place] female with known history of hypertension, diabetes mellitus, hyperlipidemia and asthma presenting to the emergency room today complaining of her shortness of breath, lower extremity swelling and some chills which has been ongoing for the past 3 days. Patient indicates that she has had some swelling of her lower extremities and also lower abdomen over the past 3 weeks but has gotten worse over the past 3 days. She denies any chest pain, no fever, no nausea vomiting, no abdominal pain, no headache or dizziness. Patient tried using some inhaler at home without any significant improvement. Shortness of breath is said to get worse on lying down and on exertion. Patient admits that she has had contact with family members who were diagnosed with COVID-19 about 2 to 3 months ago and she also had an area travel to [place] sometime in July 2020. Evaluation in the emergency room today reveals elevated BNP, elevated d-dimer. CT angiogram of the chest reveals Heterogeneous groundglass opacity with mosaic attenuation - likely a combination of reactive airway disease and edema. Small right effusion Patient has been placed on diuretics and also empiric IV antibiotics for possible underlying pneumonia. She is also placed on isolation precautions. Still very Short of breath and tachypneic Objective - Constitutional Vitals: Vital Signs - 12hr 08/15/20 12:09 Temperature 97.2 F L Pulse Rate 58 L Respiratory 18 Rate Blood Pressure 145/77 O2 Sat by Pulse 100 Oximetry - Labs CBC & Chem 7: 08/15/20 05:24 08/15/20 05:24 Labs: Abnormal lab results 08/14/20 08/14/20 08/14/20 Range/Units 19:15 19:15 20:33 RBC (3.65-5.03) M/mm3 Hgb (10.1-14.3) gm/dl MCH 27 L (28-32) pg RDW 17.1 H (13.2-15.2) % [place] % (Auto) 8.4 H (0.0-7.3) % [place] # 0.9 H (0.0-0.8) K/mm3 D-Dimer 666.45 H (0-234) ng/mlDDU Potassium 3.4 L (3.6-5.0) mmol/L Glucose 175 H (65-100) mg/dL POC Glucose (70-105) Alkaline Phosphatase 235 H (35-129) units/L Lactate Dehydrogenase (91-180) units/L NT-Pro-B Natriuret Pep 1156 H (0-900) pg/mL 08/14/20 08/15/20 08/15/20 Range/Units 20:33 05:24 05:24 RBC 3.61 L (3.65-5.03) M/mm3 Hgb 9.7 L (10.1-14.3) gm/dl MCH 27 L (28-32) pg RDW 17.0 H (13.2-15.2) % [place] % (Auto) 7.4 H (0.0-7.3) % [place] # (0.0-0.8) K/mm3 D-Dimer (0-234) ng/mlDDU Potassium 3.5 L (3.6-5.0) mmol/L Glucose 222 H (65-100) mg/dL POC Glucose (70-105) Alkaline Phosphatase (35-129) units/L Lactate Dehydrogenase 270 H (91-180) units/L NT-Pro-B Natriuret Pep (0-900) pg/mL 08/15/20 08/15/20 Range/Units 08:37 11:23 RBC (3.65-5.03) M/mm3 Hgb (10.1-14.3) gm/dl MCH (28-32) pg RDW (13.2-15.2) % [place] % (Auto) (0.0-7.3) % [place] # (0.0-0.8) K/mm3 D-Dimer (0-234) ng/mlDDU Potassium (3.6-5.0) mmol/L Glucose (65-100) mg/dL POC Glucose 242 H 316 H (70-105) Alkaline Phosphatase (35-129) units/L Lactate Dehydrogenase (91-180) units/L NT-Pro-B Natriuret Pep (0-900) pg/mL HEART Score - HEART Score Troponin: Troponin T < 0.010 ng/mL (0.00-0.029) 08/14/20 19:15
--- NOTE | 2020-08-15 17:35 | Progress Note ---
Assessment and Plan (1) CHF (congestive heart failure) Current Visit: Yes Status: Acute Plan to address problem: Patient placed on diuretics. Will monitor daily weights and also monitor inputs and output. Patient will be scheduled for echocardiogram. (2) Hypoxia Current Visit: Yes Status: Acute Plan to address problem: We will keep oxygen saturation greater or equal to 92%. (3) Suspected 2019 novel coronavirus infection Current Visit: Yes Status: Acute Plan to address problem: Patient placed on isolation precautions. We will schedule for COVID-19 testing. We will also request infectious disease evaluation. (4) Diabetes mellitus Current Visit: No Status: Acute Qualifiers: Diabetes mellitus type: type 2 Diabetes mellitus correction insulin use: with correction use Diabetes mellitus complication status: with hyperglycemia Qualified Code(s): E11.65 - Type 2 diabetes mellitus with hyperglycemia; Z79.4 - intermediate school teacher (current) use of insulin Plan to address problem: We will monitor Accu-Cheks and resume routine home medications once reconciled. (5) HTN (hypertension) Current Visit: No Status: Acute Qualifiers: Hypertension type: essential hypertension Qualified Code(s): I10 - Essential (primary) hypertension Plan to address problem: We will continue routine home medications and monitor vital signs closely. (6) DVT prophylaxis Current Visit: Yes Status: Acute Plan to address problem: Patient placed on subcutaneous Lovenox. (7) Full code status Current Visit: Yes Status: Acute Subjective Date of service: 08/15/20 Interval history: 64-year-old -[place]in[place] female with known history of hypertension, diabetes mellitus, hyperlipidemia and asthma presenting to the emergency room today complaining of her shortness of breath, lower extremity swelling and some chills which has been ongoing for the past 3 days. Patient indicates that she has had some swelling of her lower extremities and also lower abdomen over the past 3 weeks but has gotten worse over the past 3 days. She denies any chest pain, no fever, no nausea vomiting, no abdominal pain, no headache or dizziness. Patient tried using some inhaler at home without any significant improvement. Shortness of breath is said to get worse on lying down and on exertion. Patient admits that she has had contact with family members who were diagnosed with COVID-19 about 2 to 3 months ago and she also had an area travel to [place] sometime in July 2020. Evaluation in the emergency room today reveals elevated BNP, elevated d-dimer. CT angiogram of the chest reveals Heterogeneous groundglass opacity with mosaic attenuation - likely a combination of reactive airway disease and edema. Small right effusion Patient has been placed on diuretics and also empiric IV antibiotics for possible underlying pneumonia. She is also placed on isolation precautions. Objective - Constitutional Vitals: Vital Signs - 12hr 08/15/20 12:09 Temperature 97.2 F L Pulse Rate 58 L Respiratory 18 Rate Blood Pressure 145/77 O2 Sat by Pulse 100 Oximetry General appearance: Present: no acute distress, well-nourished - EENT Eyes: PERRL, EOM intact ENT: hearing intact, clear oral mucosa Ears: bilateral: normal - Neck Neck: supple, normal ROM - Respiratory Respiratory effort: normal Respiratory: bilateral: CTA - Breasts Breasts: normal - Cardiovascular Rhythm: regular Heart Sounds: Present: S1 & S2. Absent: gallop, rub Extremities: pulses intact, No edema, normal color, Full ROM - Gastrointestinal General gastrointestinal: Present: soft, non-tender, non-distended, normal bowel sounds - Genitourinary Female genitourinary: normal - Integumentary Integumentary: clear, warm, dry - Musculoskeletal Musculoskeletal: 1, strength equal bilaterally - Neurologic Neurologic: moves all extremities - Psychiatric Psychiatric: memory intact, appropriate mood/affect, intact judgment & insight - Labs CBC & Chem 7: 08/15/20 05:24 08/15/20 05:24 Labs: Abnormal lab results 08/14/20 08/14/20 08/14/20 Range/Units 19:15 19:15 20:33 RBC (3.65-5.03) M/mm3 Hgb (10.1-14.3) gm/dl MCH 27 L (28-32) pg RDW 17.1 H (13.2-15.2) % [place] % (Auto) 8.4 H (0.0-7.3) % [place] # 0.9 H (0.0-0.8) K/mm3 D-Dimer 666.45 H (0-234) ng/mlDDU Potassium 3.4 L (3.6-5.0) mmol/L Glucose 175 H (65-100) mg/dL POC Glucose (70-105) Alkaline Phosphatase 235 H (35-129) units/L Lactate Dehydrogenase (91-180) units/L NT-Pro-B Natriuret Pep 1156 H (0-900) pg/mL 08/14/20 08/15/20 08/15/20 Range/Units 20:33 05:24 05:24 RBC 3.61 L (3.65-5.03) M/mm3 Hgb 9.7 L (10.1-14.3) gm/dl MCH 27 L (28-32) pg RDW 17.0 H (13.2-15.2) % [place] % (Auto) 7.4 H (0.0-7.3) % [place] # (0.0-0.8) K/mm3 D-Dimer (0-234) ng/mlDDU Potassium 3.5 L (3.6-5.0) mmol/L Glucose 222 H (65-100) mg/dL POC Glucose (70-105) Alkaline Phosphatase (35-129) units/L Lactate Dehydrogenase 270 H (91-180) units/L NT-Pro-B Natriuret Pep (0-900) pg/mL 08/15/20 08/15/20 Range/Units 08:37 11:23 RBC (3.65-5.03) M/mm3 Hgb (10.1-14.3) gm/dl MCH (28-32) pg RDW (13.2-15.2) % [place] % (Auto) (0.0-7.3) % [place] # (0.0-0.8) K/mm3 D-Dimer (0-234) ng/mlDDU Potassium (3.6-5.0) mmol/L Glucose (65-100) mg/dL POC Glucose 242 H 316 H (70-105) Alkaline Phosphatase (35-129) units/L Lactate Dehydrogenase (91-180) units/L NT-Pro-B Natriuret Pep (0-900) pg/mL HEART Score - HEART Score Troponin: Troponin T < 0.010 ng/mL (0.00-0.029) 08/14/20 19:15
[2020-08-15] MEDS ORDERED: ENOXAPARIN 40 MG/0.4 ML INJ SUB-Q SCH (22:00)
[2020-08-15] MEDS ORDERED: AZITHROMYCIN 500 MG in SODIUM CHLORIDE 0.9% 250ML 250 ML IV SCH (22:00)
[2020-08-16] MEDS ORDERED: diphenhydrAMINE 25 MG CAP PO ONE (00:33)
[2020-08-16] MEDS: GABAPENTIN 300 MG CAP PO SCH ×2 (05:28→15:56)
[2020-08-16] MEDS: FUROSEMIDE 40 MG/4 ML INJ IV SCH ×2 (05:28→18:16)
[2020-08-16] MEDS: INSULIN LISPRO 100 UNIT/ML VIAL 3 mL SUB-Q SCH ×3 (08:23→18:14)
[2020-08-16] MEDS: LOSARTAN 50 MG TAB PO SCH (12:05)
[2020-08-16] MEDS: SPIRONOLACTONE 50 MG TAB PO SCH (12:05)
[2020-08-16] MEDS: ASPIRIN 81 MG TAB CHEW PO SCH (12:06)
[2020-08-16] MEDS: amLODIPine 10 MG TAB PO SCH (12:06)
[2020-08-16] MEDS: INSULIN GLARGINE 100 UNITS/ML SUB-Q SCH (12:10)
--- NOTE | 2020-08-16 15:48 | Progress Note ---
Assessment and Plan Cultures: Blood Cultures no growth today SARS COV2 PCR negative Assessment: 64 years old female with history of hypertension, diabetes, hyperlipidemia, hospital, admitted on 08/15/2020 due to 2-day history of generalized malaise, chills, lower extremity edema, shortness of breath: #Pulmonary edema versus bilateral pneumonia: COVID-19 PCR negative. Procalcitonin normal. [id number]. Complaining of orthopnea and bilateral lower extremity edema. These mostly represent pulmonary edema. Patient without fever. CTA shows no pulmonary embolism, positive heterogeneous groundglass opacity bilaterally. TTE normal EF ?pulmonary HTN #Hypoxia: Possibly due to pulmonary edema. On 2 L NC ? pulm HTN/REYNALDO #Diabetes mellitus uncontrolled. #Morbid obesity Recommendations: Managed pulmonary edema Monitor off antibiotics Consider pulm consult for hypoxia/pulm hypertension/REYNALDO - pt c/o SOB, ELDER, orthopnea and justice leg edema Will sign off Antonia Moeller MD Infectious Diseases [employer] [facility] M [phone] O [phone] Subjective Date of service: 08/16/20 Principal diagnosis: pneumonia Interval history: Feels better, no SOB on 2 L NC Objective - Exam Narrative Exam: General appearance: Alert in NAD Eyes: anicteric sclerae, moist conjunctivae; no lid-lag; PERRLA HENT: Atraumatic; oropharynx clear with moist mucous membranes and no oral thrush; normal hard and soft palate. Lungs: diminished bs CV: RRR no murmur Abdomen: Soft, non-tender; obses Extremities: justice leg edema Skin: No rash. Psych: Appropriate affect, alert and oriented to person, place and time. Neuro: alert and oriented x 3. Moving all extermities - Constitutional Vitals: Vital Signs Temp Pulse Resp BP Pulse Ox 98.7 F 65 18 149/46 96 08/16/20 11:21 08/16/20 12:06 08/16/20 11:21 08/16/20 12:06 08/16/20 11:21 Temperature -Last 24 Hours Temperature 98.7 F Temperature 99.2 F Temperature 99.2 F Temperature 97.9 F - Labs CBC & Chem 7: 08/15/20 05:24 08/15/20 05:24 Labs: Abnormal lab results 08/15/20 08/16/20 Range/Units 21:45 11:37 POC Glucose 239 H 213 H (70-105)
--- NOTE | 2020-08-16 17:50 | Discharge Summary ---
Providers - Providers Date of Admission: 08/15/20 15:45 Date of discharge: 08/16/20 Attending physician: SUSANA TIRADO 08/14/20 23:45 Consult to Dietitian/Nutrition [CONS] Routine Physician Instructions: Reason For Exam: Reason for Consult: Diet education 08/14/20 23:50 Consult to Physician [CONS] Routine Comment: Consulting Provider: BRENDA HERNANDEZ Physician Instructions: Reason For Exam: ?HYPOXIA/PNEUMONIA R/O COVID 19 Primary care physician: MAKAYLA BURRELL MD Hospitalization Condition: Serious Disposition: DC-01 TO HOME OR SELFCARE Exam - Constitutional Vitals: Temp Pulse Resp BP Pulse Ox 98.7 F 65 20 149/46 97 08/16/20 11:21 08/16/20 12:06 08/16/20 14:00 08/16/20 12:06 08/16/20 14:00 Plan Follow up with: PRIMARY MD INDRA [Primary Care Provider] - 7 Days
[2020-08-16 17:59] VITALS: BP 163/78
[2020-08-16] MEDS ORDERED: AZITHROMYCIN 250 MG TAB PO SCH (22:00)
== END 2020-08-16 18:55 | disposition home or self-care (01) | DRG 194 ==
LOC: ED 18:39 → 4A 23:41 → 3A 08-15 00:17 → OBSVTOIN 08-15 15:45
PROVIDERS: ADMIT Internal Medicine Geriatric Medicine; ATTEND Internal Medicine
DX: J18.9 Pneumonia, unspecified organism (principal); Z68.44 Body mass index [BMI] 60.0-69.9, adult; Z20.828 Contact with and (suspected) exposure to other viral communicable diseases; I50.9 Heart failure, unspecified; E78.5 Hyperlipidemia, unspecified; M19.90 Unspecified osteoarthritis, unspecified site; J45.909 Unspecified asthma, uncomplicated; E66.01 Morbid (severe) obesity due to excess calories; I11.0 Hypertensive heart disease with heart failure; G47.33 Obstructive sleep apnea (adult) (pediatric); I27.20 Pulmonary hypertension, unspecified; E11.9 Type 2 diabetes mellitus without complications; R09.02 Hypoxemia; Z79.4 Long term (current) use of insulin; Z90.710 Acquired absence of both cervix and uterus; Z79.899 Other long term (current) drug therapy; Z90.49 Acquired absence of other specified parts of digestive tract
CPT/HCPCS: 36415; 71045; 71275; 80048; 80053; 82728; 82962; 83615; 83880; 84145; 84484; 85025; 85379; 85610; 86140; 87040; 93005; 93306; 96365; 96367; 96372; 96375; G0378; A9270-GY; J0456; J0696; J1200; J1650; J1815; J1940; J7050; Q9967; U0003-CS